=== PATIENT | female | born 1965 | race African-American/Black ===

== ENCOUNTER 2019-08-20 06:35 | Observation (INO) ==
[2019-08-20] MEDS ORDERED: NITROGLYCERIN 2% OINT 1 INCH/GM PACK TOP STA (06:58)
[2019-08-20] MEDS ORDERED: ASPIRIN 325 MG TABLET PO STA (06:58)
[2019-08-20] MEDS ORDERED: ENOXAPARIN 100 MG/ML SYRINGE SUBCUT STA (06:58)
[2019-08-20 08:21] LABS: Basophils % 0.4 % (0.0-0.8); Eosinophils # 0.6 10*3/uL (0.0-0.87); Eosinophils % 6.4 % (0.00-10.9); Hematocrit 37.3 VOL% (35.7-47.0); Hemoglobin 11.4 GM/DL (12.0-16.0); Immature Granulocytes % 0.6 %; Immature Granulocytes Absolute 0.06 #; Lymphocytes # 2.2 10*3/uL (1.4-4.0); Lymphocytes % 22.6 % (21.3-54.2); Mean Corpuscular HGB Conc 30.6 GM/DL (32-36); Mean Corpuscular Volume 71.6 FL (87-102); Mean Platelet Volume 9.9 FL (9.6-12.0); Monocytes % 6.5 % (1.7-12.7); Neutrophils % 63.5 % (38.7-73.9); Platelet Count 270 T/CUMM (130-400); Red Blood Count 5.21 MC/CUMM (3.8-5.5); Red Cell Distribution Width 14.6 % (9.3-17.3); White Blood Count 9.9 T/CUMM (4-12)
[2019-08-20 08:30] LABS: INR 0.9; PT Patient Result 9.5 SECS (9.6-12.2); Partial Thromboplastin Time 26.3 SECS (20.8-36.0)
[2019-08-20 08:37] LABS: Alanine Aminotransferase 20 U/L (13-56); Albumin 3.2 G/DL (3.4-5.0); Alkaline Phosphatase 197 U/L (45-117); Aspartate Amino Transferase 17 U/L (0-37); Bilirubin,Total < 0.39 MG/DL (0.2-1.0); Blood Urea Nitrogen 21 MG/DL (7-18); Calcium 8.8 MG/DL (8.5-10.1); Estimated Glom Filtration Rate 73 ML/MIN; Glucose 255 MG/DL (74-106); Osmolality,Calculated 284.8 MOS/KG (273-304); Total Protein 7.4 G/DL (6.4-8.3)
[2019-08-20 08:56] LABS: Apearance,Urine CLOUDY (Clear); Bacteria,Urine Many /HPF (Few); Bilirubin,Urine Negative (Negative); Blood, Urine Small mg/dL (Negative); Glucose,Urine (UA) >=500 mg/dL (Negative); Ketones,Urine Negative (Negative); Nitrite,Urine Positive (Negative); Protein,Urine 30 MG/DL; RBC,Urine 3 /HPF (0-4); Squamous Epithelial Cell,Urine Few /HPF (0-10); Urine Color Yellow (Yellow); Urine Specific Gravity 1.017 (1.001-1.035); Urine Urobilinogen < 2.0 EU/DL (0.2-1.0); WBC,Urine 113 /HPF (0-6)
[2019-08-20 08:58] LABS: Barbiturates Screen,Urine Negative (Negative); Benzodiazepines Screen,Urine Negative (Negative); Cannabinoid Screen,Urine Positive (Negative); Opiate Screen,Urine Positive (Negative); Phencyclidine Screen,Urine Negative (Negative)
[2019-08-20] MEDS ORDERED: DEXTROSE 50% 25 GM/50 ML VIAL IV PRN ×2 (08:58→09:01)
[2019-08-20] MEDS ORDERED: GLUCAGON 1 MG VIAL IM PRN ×2 (08:58→09:01)
[2019-08-20] MEDS ORDERED: cefTRIAXone 1,000 MG in SYRINGE 1 EACH IV SCH (09:00)
[2019-08-20] MEDS ORDERED: LACTATED RINGERS 1,000 ML IV SCH (09:00)
[2019-08-20] MEDS ORDERED: ENOXAPARIN 100 MG/ML SYRINGE SUBCUT SCH (09:00)
[2019-08-20] MEDS ORDERED: DICYCLOMINE 20 MG TABLET PO PRN (09:02)
[2019-08-20] MEDS ORDERED: ONDANSETRON 4 MG TABLET PO PRN (09:02)
[2019-08-20] MEDS ORDERED: AZITHROMYCIN 250 MG TABLET PO STA (09:03)
[2019-08-20] MEDS ORDERED: ONDANSETRON 4 MG/2 ML VIAL ONE (09:32)
[2019-08-20] MEDS ORDERED: KETOROLAC 30 MG/1 ML VIAL IV SCH (12:00)
[2019-08-20 12:53] LABS: Risk Ratio 5.24; VLDL CHOLESTEROL 34.6 MG/DL
[2019-08-20 13:40] LABS: Troponin I < 0.015 NG/ML (0.00-0.045)
[2019-08-20] MEDS ORDERED: cefTRIAXone 1,000 MG in SYRINGE 1 EACH IM SCH (14:28)
[2019-08-20] MEDS ORDERED: KETOROLAC 30 MG/1 ML VIAL IM SCH (14:31)
[2019-08-20] MEDS: INSULIN LISPRO 100 UNIT/ML SUBCUT SCH ×5 (14:57→21:35)
[2019-08-20] MEDS: HYDROcodone/CHLORPHENIRAMINE ER 5 ML UDCUP PO SCH ×2 (14:59→21:37)
[2019-08-20] MEDS ORDERED: cefTRIAXone 1,000 MG VIAL IM SCH (15:00)
[2019-08-20] MEDS: METAXALONE 800 MG TABLET PO SCH ×2 (15:04→21:27)
[2019-08-20] MEDS: GABAPENTIN 400 MG CAPSULE PO SCH ×2 (15:05→21:27)
[2019-08-20] MEDS: carvediloL 3.125 MG TABLET PO SCH ×2 (15:06→21:29)
[2019-08-20] MEDS ORDERED: SODIUM CHLORIDE 0.9% 500 ML IV ONE (18:38)
[2019-08-20] MEDS ORDERED: MORPHINE 4 MG/1 ML VIAL IV PRN (18:40)
[2019-08-20] MEDS ORDERED: SODIUM CHLORIDE 0.9% 1,000 ML IV SCH (19:00)
[2019-08-20] MEDS ORDERED: INSULIN GLARGINE 100 UNIT/ML SUBCUT SCH (21:00)
[2019-08-20] MEDS ORDERED: ROSUVASTATIN 20 MG TABLET PO SCH (21:00)
[2019-08-20] MEDS ORDERED: ATORVASTATIN 80 MG TABLET PO SCH (21:00)
[2019-08-20] MEDS ORDERED: ENOXAPARIN 40 MG/0.4 ML SYRINGE SUBCUT SCH (21:00)
[2019-08-21 07:44] VITALS: BP 135/80
[2019-08-21] MEDS: METAXALONE 800 MG TABLET PO SCH (08:29)
[2019-08-21] MEDS: GABAPENTIN 400 MG CAPSULE PO SCH (08:29)
[2019-08-21] MEDS: carvediloL 3.125 MG TABLET PO SCH (08:30)
[2019-08-21] MEDS: HYDROcodone/CHLORPHENIRAMINE ER 5 ML UDCUP PO SCH (08:32)
[2019-08-21] MEDS: INSULIN LISPRO 100 UNIT/ML SUBCUT SCH ×2 (08:32→08:33)
[2019-08-21] MEDS ORDERED: LOSARTAN/HCTZ 50-12.5 MG TABLET PO SCH (09:00)
[2019-08-21] MEDS ORDERED: PANTOPRAZOLE 40 MG TABLET PO SCH (09:00)
[2019-08-21] MEDS ORDERED: CLOPIDOGREL 75 MG TABLET PO SCH (09:00)
[2019-08-21] MEDS ORDERED: ASPIRIN EC 81 MG TABLET PO SCH (09:00)
== END 2019-08-21 09:32 | disposition home or self-care (01) ==
LOC: N.EDINP 06:35 → N.ED 06:35 → SUATTDRO 08:58 → N.2W 09:32
PROVIDERS: ADMIT Internal Medicine; ATTEND Family Medicine

== ENCOUNTER 2019-09-06 14:20 | Observation (INO) ==
[2019-09-06] MEDS ORDERED: ONDANSETRON 4 MG/2 ML VIAL IV STA (15:37)
[2019-09-06] MEDS ORDERED: HYDROmorphone 2 MG/1 ML VIAL IV STA (15:37)
[2019-09-06 18:01] LABS: Basophils % 0.3 % (0.0-0.8); Hematocrit 38.8 VOL% (35.7-47.0); Hemoglobin 11.6 GM/DL (12.0-16.0); Immature Granulocytes % 0.4 %; Immature Granulocytes Absolute 0.04 #; Lymphocytes # 1.3 10*3/uL (1.4-4.0); Lymphocytes % 13.5 % (21.3-54.2); Mean Corpuscular HGB Conc 29.9 GM/DL (32-36); Mean Corpuscular Volume 72.5 FL (87-102); Mean Platelet Volume 9.9 FL (9.6-12.0); Monocytes % 2.2 % (1.7-12.7); Neutrophils % 83.6 % (38.7-73.9); Platelet Count 334 T/CUMM (130-400); Red Blood Count 5.35 MC/CUMM (3.8-5.5); Red Cell Distribution Width 15.4 % (9.3-17.3); White Blood Count 9.3 T/CUMM (4-12)
[2019-09-06 18:32] LABS: Albumin 3.4 G/DL (3.4-5.0); Bilirubin,Total 0.4 MG/DL (0.2-1.0); Calcium 9.1 MG/DL (8.5-10.1); Osmolality,Calculated 281.8 MOS/KG (273-304); Total Protein 7.4 G/DL (6.4-8.3)
[2019-09-06 18:48] LABS: Apearance,Urine CLEAR (Clear); Bacteria,Urine Moderate /HPF (Few); Bilirubin,Urine Negative (Negative); Blood, Urine Moderate mg/dL (Negative); Glucose,Urine (UA) >=500 mg/dL (Negative); Ketones,Urine 20 mg/dL (Negative); Mucus,Urine Occasional /LPF (Occasional); Nitrite,Urine Positive (Negative); Protein,Urine 100 MG/DL; RBC,Urine 4 /HPF (0-4); Squamous Epithelial Cell,Urine Occasional /HPF (0-10); Urine Color Yellow (Yellow); Urine Specific Gravity 1.016 (1.001-1.035); Urine Urobilinogen < 2.0 EU/DL (0.2-1.0); WBC,Urine 1 /HPF (0-6)
[2019-09-06] MEDS ORDERED: SODIUM CHLORIDE 0.9% 500 ML IV STA (18:52)
[2019-09-06] MEDS ORDERED: cefTRIAXone 1,000 MG in SODIUM CHLORIDE 0.9% 100 ML IV STA (18:53)
[2019-09-06] MEDS ORDERED: PANTOPRAZOLE 40 MG VIAL IV STA (18:53)
[2019-09-06] MEDS ORDERED: hydrALAZINE 20 MG/1 ML VIAL IV STA (19:23)
[2019-09-06] MEDS ORDERED: hydrALAZINE 20 MG/1 ML VIAL ONE (19:23)
[2019-09-06] MEDS ORDERED: METOCLOPRAMIDE 10 MG/2 ML VIAL IV STA (19:23)
[2019-09-06] MEDS ORDERED: METOCLOPRAMIDE 10 MG/2 ML VIAL ONE (19:24)
[2019-09-06] MEDS ORDERED: GLUCAGON 1 MG VIAL IM PRN ×2 (19:35→19:38)
[2019-09-06] MEDS ORDERED: ACETAMINOPHEN 325 MG TABLET PO PRN (19:35)
[2019-09-06] MEDS ORDERED: ONDANSETRON 4 MG/2 ML VIAL IV PRN (19:35)
[2019-09-06] MEDS ORDERED: ZALEPLON 5 MG CAPSULE PO PRN (19:35)
[2019-09-06] MEDS ORDERED: DOCUSATE SODIUM 100 MG CAPSULE PO PRN (19:35)
[2019-09-06] MEDS ORDERED: DEXTROSE 50% 25 GM/50 ML VIAL IV PRN (19:35)
[2019-09-06] MEDS ORDERED: NICOTINE 21 MG/24 HR PATCH TRANSDERM PRN (19:35)
[2019-09-06] MEDS ORDERED: diphenhydrAMINE CAP 25 MG CAPSULE PO PRN (19:35)
[2019-09-06] MEDS ORDERED: guaiFENesin/DM ER 600-30 MG TABLET PO PRN (19:35)
[2019-09-06] MEDS ORDERED: DEXTROSE 10% 250 ML BAG IV PRN (19:38)
[2019-09-06] MEDS ORDERED: hydrALAZINE 20 MG/1 ML VIAL IV PRN (19:38)
[2019-09-06] MEDS: MORPHINE 4 MG/1 ML VIAL IV PRN (21:05)
[2019-09-06] MEDS: PROMETHAZINE 25 MG/1 ML VIAL IM PRN (21:06)
[2019-09-06] MEDS: PANTOPRAZOLE 40 MG VIAL IV SCH (22:00)
[2019-09-06] MEDS: ATORVASTATIN 80 MG TABLET PO SCH (22:03)
[2019-09-06] MEDS: carvediloL 3.125 MG TABLET PO SCH (22:03)
[2019-09-06] MEDS: GABAPENTIN 400 MG CAPSULE PO SCH (22:03)
[2019-09-06] MEDS: INSULIN LISPRO 100 UNIT/ML SUBCUT SCH (22:04)
[2019-09-06] MEDS: INSULIN GLARGINE 100 UNIT/ML SUBCUT SCH (22:04)
[2019-09-06] MEDS: ENOXAPARIN 40 MG/0.4 ML SYRINGE SUBCUT SCH (22:05)
[2019-09-06] MEDS: SODIUM CHLOR 0.9% KCL 40 MEQ 40 MEQ/1,000 ML BAG IV SCH (22:13)
[2019-09-06] MEDS: LORazepam 1 MG TABLET PO PRN (22:25)
[2019-09-07] MEDS: PROMETHAZINE 25 MG/1 ML VIAL IM PRN (03:30)
[2019-09-07] MEDS ORDERED: SCOPOLAMINE 1.5 MG PATCH TRANSDERM PRN (03:50)
[2019-09-07] MEDS ORDERED: PROCHLORPERAZINE 10 MG TABLET PO PRN (03:50)
[2019-09-07] MEDS: MORPHINE 4 MG/1 ML VIAL IV PRN ×3 (04:25→21:20)
[2019-09-07 06:54] LABS: Basophils % 0.1 % (0.0-0.8); Hematocrit 32.1 VOL% (35.7-47.0); Hemoglobin 9.6 GM/DL (12.0-16.0); Immature Granulocytes % 0.4 %; Immature Granulocytes Absolute 0.05 #; Lymphocytes % 17.3 % (21.3-54.2); Mean Corpuscular HGB Conc 29.9 GM/DL (32-36); Mean Corpuscular Volume 72.1 FL (87-102); Mean Platelet Volume 10.2 FL (9.6-12.0); Neutrophils % 76.2 % (38.7-73.9); Platelet Count 221 T/CUMM (130-400); Red Blood Count 4.45 MC/CUMM (3.8-5.5); Red Cell Distribution Width 15.2 % (9.3-17.3); White Blood Count 11.5 T/CUMM (4-12)
[2019-09-07 07:19] LABS: Alanine Aminotransferase 14 U/L (13-56); Albumin 2.8 G/DL (3.4-5.0); Alkaline Phosphatase 132 U/L (45-117); Aspartate Amino Transferase 14 U/L (0-37); Bilirubin,Total < 0.39 MG/DL (0.2-1.0); Blood Urea Nitrogen 15 MG/DL (7-18); Calcium 8.2 MG/DL (8.5-10.1); Estimated Glom Filtration Rate 66 ML/MIN; Glucose 243 MG/DL (74-106); Osmolality,Calculated 281.8 MOS/KG (273-304); Total Protein 6.5 G/DL (6.4-8.3)
[2019-09-07] MEDS: SODIUM CHLOR 0.9% KCL 40 MEQ 40 MEQ/1,000 ML BAG IV SCH ×3 (07:35→21:33)
[2019-09-07] MEDS: PANTOPRAZOLE 40 MG VIAL IV SCH ×2 (09:27→21:25)
[2019-09-07] MEDS: LOSARTAN/HCTZ 50-12.5 MG TABLET PO SCH (09:28)
[2019-09-07] MEDS: carvediloL 3.125 MG TABLET PO SCH ×2 (09:28→21:32)
[2019-09-07] MEDS: CLOPIDOGREL 75 MG TABLET PO SCH (09:28)
[2019-09-07] MEDS: ASPIRIN EC 81 MG TABLET PO SCH (09:28)
[2019-09-07] MEDS: GABAPENTIN 400 MG CAPSULE PO SCH ×3 (09:28→21:26)
[2019-09-07] MEDS: INSULIN LISPRO 100 UNIT/ML SUBCUT SCH ×4 (09:28→21:25)
[2019-09-07] MEDS ORDERED: cefTRIAXone 1,000 MG in SYRINGE 1 EACH IV SCH (18:00)
[2019-09-07] MEDS: INSULIN GLARGINE 100 UNIT/ML SUBCUT SCH (21:25)
[2019-09-07] MEDS: ATORVASTATIN 80 MG TABLET PO SCH (21:26)
[2019-09-07] MEDS: ENOXAPARIN 40 MG/0.4 ML SYRINGE SUBCUT SCH (21:26)
[2019-09-07] MEDS: LORazepam 1 MG TABLET PO PRN (22:30)
[2019-09-08 09:20] LABS: Basophils # 0.1 10*3/uL (0.0-0.2); Basophils % 0.5 % (0.0-0.8); Eosinophils # 0.2 10*3/uL (0.0-0.87); Eosinophils % 2.1 % (0.00-10.9); Hematocrit 36.4 VOL% (35.7-47.0); Immature Granulocytes % 0.2 %; Immature Granulocytes Absolute 0.02 #; Lymphocytes # 3.6 10*3/uL (1.4-4.0); Lymphocytes % 38.7 % (21.3-54.2); Mean Corpuscular HGB Conc 30.2 GM/DL (32-36); Mean Corpuscular Volume 72.1 FL (87-102); Mean Platelet Volume 9.8 FL (9.6-12.0); Monocytes % 7.6 % (1.7-12.7); Neutrophils % 50.9 % (38.7-73.9); Platelet Count 298 T/CUMM (130-400); Red Blood Count 5.05 MC/CUMM (3.8-5.5); Red Cell Distribution Width 15.8 % (9.3-17.3); White Blood Count 9.4 T/CUMM (4-12)
[2019-09-08 09:36] LABS: Calcium 8.3 MG/DL (8.5-10.1); Osmolality,Calculated 291.7 MOS/KG (273-304)
[2019-09-08] MEDS: CLOPIDOGREL 75 MG TABLET PO SCH (09:46)
[2019-09-08] MEDS: ASPIRIN EC 81 MG TABLET PO SCH (09:46)
[2019-09-08] MEDS: LOSARTAN/HCTZ 50-12.5 MG TABLET PO SCH (09:46)
[2019-09-08] MEDS: carvediloL 3.125 MG TABLET PO SCH (09:46)
[2019-09-08] MEDS: INSULIN LISPRO 100 UNIT/ML SUBCUT SCH (09:47)
[2019-09-08] MEDS: PANTOPRAZOLE 40 MG VIAL IV SCH (09:47)
[2019-09-08] MEDS: GABAPENTIN 400 MG CAPSULE PO SCH (09:47)
[2019-09-08] MEDS: MORPHINE 4 MG/1 ML VIAL IV PRN (09:48)
[2019-09-08 13:10] VITALS: BP 131/74
[2019-09-08] MEDS: SODIUM CHLOR 0.9% KCL 40 MEQ 40 MEQ/1,000 ML BAG IV SCH (13:11)
== END 2019-09-08 13:55 | disposition home or self-care (01) ==
LOC: N.EDINP 14:20 → N.ED 14:20 → N.5E 20:23
PROVIDERS: ADMIT Internal Medicine; ATTEND Internal Medicine